=== PATIENT | female | born 1990 | race Caucasian/White ===

== ENCOUNTER 2022-06-21 11:25 | Emergency (ER) | payer BC ==
[~2022-06-21] VITALS: Ht 154.9 cm; Wt 57.2 kg
[2022-06-21] MEDS ORDERED: AMOX TR-K CLV1 EAC2 PO (12:21)
== END 2022-06-21 12:26 | disposition home or self-care (01) ==
LOC: FSED 11:33
DX: Z48.01 Encounter for change or removal of surgical wound dressing (principal)
CPT/HCPCS: 99282